=== PATIENT | female | born 1990 | race Caucasian/White ===

== ENCOUNTER 2017-04-02 18:11 | Emergency (ER) | payer MEDICAID ==
[~2017-04-02] VITALS: Ht 167.6 cm; Wt 118.0 kg
[~2017-04-02 18:11] MED LIST: CEPH500C2; METR500T4
[2017-04-02] MEDS ORDERED: HYDROCODONE/ACETAMINOPHEN 5/325MG TABLET PO ONE (19:15)
[2017-04-03 02:16] VITALS: BP 110/60
== END 2017-04-03 02:12 | disposition home or self-care (01) ==
LOC: ER 18:11
DX: H60.93 Unspecified otitis externa, bilateral (principal); E11.9 Type 2 diabetes mellitus without complications; G82.20 Paraplegia, unspecified; Z90.49 Acquired absence of other specified parts of digestive tract; Z86.718 Personal history of other venous thrombosis and embolism; Z98.890 Other specified postprocedural states
CPT/HCPCS: 69209; 99283

== ENCOUNTER 2019-01-07 | Emergency (ER) | payer MEDICAID ==
[~2019-01-07] VITALS: Ht 162.6 cm; Wt 100.0 kg
[2019-01-07] MEDS ORDERED: IBUPROFEN 800MG TABLET PO ONE (01:00)
[2019-01-07 06:12] VITALS: BP 105/65
== END 2019-01-07 06:57 | disposition home or self-care (01) ==
LOC: ER
DX: L89.322 Pressure ulcer of left buttock, stage 2 (principal); E11.622 Type 2 diabetes mellitus with other skin ulcer; R51 Headache; Z86.718 Personal history of other venous thrombosis and embolism
CPT/HCPCS: 99283

== ENCOUNTER 2019-01-09 15:06 | Inpatient (IN) | payer MEDICAID ==
[~2019-01-09] VITALS: Ht 167.6 cm; Wt 123.4 kg
[2019-01-09] MEDS ORDERED: VANCOMYCIN 1 G PREMIX 200 ML IV ONE (17:15)
[2019-01-09] MEDS ORDERED: SODIUM CHLORIDE 0.9% 1000ML BAG (SEPSIS BOLUS) IV ONE (17:15)
[2019-01-09] MEDS ORDERED: KETOROLAC 30MG/ML VIAL IV ONE (17:15)
[2019-01-09] MEDS ORDERED: PIPERACILLIN/TAZ 3.375G PREMIX 50 ML IV ONE (17:15)
[2019-01-09 17:31] LABS: BASOPHILS % 0.5 % (0.0-2.0); EOSINOPHILS % 0.2 % (0.0-5.0); HEMATOCRIT. 42.9 % (36.0-48.0); HEMOGLOBIN. 14.2 g/dL (12.0-16.0); LYMPHOCYTES % 19.6 % (20.0-50.0); MEAN CORPUSCULAR HEMOGLOBIN 29.2 pg (28.0-32.0); MEAN CORPUSCULAR VOLUME 87.8 fL (81.0-99.0); MONOCYTES % 8.2 % (2.0-8.0); NEUTROPHILS % 71.5 % (40.0-76.0); PLATELET 303 x1000/uL (130-400); RED BLOOD CELL COUNT 4.88 mill/uL (4.2-5.4); RED CELL DISTRIBUTION WIDTH 13.6 % (11.6-14.6)
[2019-01-09 17:36] LABS: CHLORIDE 98 mEq/L (98-107)
[2019-01-09 17:38] LABS: INR 1.1; PROTHROMBIN TIME 10.9 sec (9.6-11.0)
[2019-01-09 17:41] LABS: CLARITY URINE CLOUDY (CLEAR); COLOR URINE YELLOW (YELLOW); KETONES URINE 4+ (NEGATIVE); LEUKOCYTE ESTERASE URINE 1+ (NEGATIVE); NITRITE URINE POSITIVE (NEGATIVE); OCCULT BLOOD URINE 1+ (NEGATIVE); PROTEIN URINE 1+ (NEGATIVE); SPECIFIC GRAVITY URINE 1.027 (1.005-1.030)
[2019-01-09 17:43] LABS: HCG SCREEN NEGATIVE
[2019-01-09] MEDS ORDERED: SODIUM CHLORIDE 0.9% IV ONE (18:15)
[2019-01-09] MEDS ORDERED: POTASSIUM CHLORIDE 20MEQ TABLET SR PO ONE (18:15)
[2019-01-09] MEDS ORDERED: ONDANSETRON HCL 4MG/2ML INJ IV ONE (18:15)
[2019-01-09] MEDS ORDERED: ACETAMINOPHEN 325MG TABLET PO ONE (18:15)
[2019-01-09] MEDS ORDERED: CLONIDINE 0.1MG TABLET PO PRN (22:15)
[2019-01-09] MEDS ORDERED: DEXTROSE 50% WATER 50ML SYRINGE IV PRN (22:15)
[2019-01-09] MEDS ORDERED: ONDANSETRON HCL 4MG/2ML INJ IV PRN (22:15)
[2019-01-09] MEDS ORDERED: DIPHENHYDRAMINE 50MG/ML VIAL IV PRN (22:15)
[2019-01-09] MEDS ORDERED: MAGNESIUM/ALUMINUM HYDROXIDE/SIMETHICONE 30ML UDC PO PRN (22:15)
[2019-01-09 23:44] VITALS: BP 105/55
[2019-01-10] VITALS (8 sets, daily range): BP systolic 94–136; BP diastolic 49–87
[2019-01-10] MEDS: SODIUM CHLORIDE 0.9% 1,000 ML IV SCH ×2 (00:26→20:59)
[2019-01-10] MEDS: FAMOTIDINE 20MG TABLET PO SCH ×2 (00:26→20:58)
[2019-01-10] MEDS: ACETAMINOPHEN 325MG TABLET PO PRN ×3 (00:27→20:57)
[2019-01-10] MEDS ORDERED: LEVOFLOXACIN 500MG PREMIX 100 ML IV SCH (01:00)
[2019-01-10] MEDS ORDERED: POTASSIUM CHLORIDE INJ 40 MEQ in DEXT 5% WATER 250 ML IV SCH (01:00)
[2019-01-10] MEDS: BLOOD SUGAR DIAGNOSTIC STRIP TEST SCH ×4 (06:25→20:59)
[2019-01-10] MEDS: INSULIN LISPRO 100 UNITS/ML SUBCUT SCH ×4 (06:26→20:59)
[2019-01-10] MEDS: ENOXAPARIN 30MG/0.3ML SYR SUBCUT SCH ×2 (09:53→20:58)
[2019-01-10 10:27] LABS: BASOPHILS % 0.3 % (0.0-2.0); EOSINOPHILS % 0.4 % (0.0-5.0); HEMATOCRIT. 38.3 % (36.0-48.0); HEMOGLOBIN. 12.9 g/dL (12.0-16.0); LYMPHOCYTES % 19.2 % (20.0-50.0); MEAN CORPUSCULAR HEMOGLOBIN 29.6 pg (28.0-32.0); MEAN CORPUSCULAR VOLUME 87.7 fL (81.0-99.0); MEAN PLATELET VOLUME 8.8 fl (7.4-10.4); MONOCYTES % 6.9 % (2.0-8.0); NEUTROPHILS % 73.2 % (40.0-76.0); PLATELET 249 x1000/uL (130-400); RED BLOOD CELL COUNT 4.36 mill/uL (4.2-5.4); RED CELL DISTRIBUTION WIDTH 13.4 % (11.6-14.6)
[2019-01-10 10:34] LABS: CHLORIDE 104 mEq/L (98-107)
[2019-01-10 10:40] LABS: PHOSPHORUS 2.3 mg/dL (2.5-4.9)
[2019-01-10] MEDS: DOCUSATE SODIUM 250MG CAPSULE PO SCH (17:52)
[2019-01-10] MEDS: ZINC SULFATE 220 MG ( 50 ) CAPSULE PO SCH (17:52)
[2019-01-10] MEDS: MULTIVITAMINS,THER W-MINERALS TABLET PO SCH (17:53)
[2019-01-10] MEDS: ASCORBIC ACID 250 MG TABLET PO SCH (17:53)
[2019-01-10] MEDS: KETOROLAC 30MG/ML VIAL IV PRN (20:58)
[2019-01-11] VITALS: BP 98/53
[2019-01-11] MEDS: LEVOFLOXACIN 500MG PREMIX 100 ML IV SCH (00:30)
[2019-01-11 04:00] VITALS: BP 130/82
[2019-01-11] MEDS: BLOOD SUGAR DIAGNOSTIC STRIP TEST SCH ×4 (05:52→20:26)
[2019-01-11] MEDS: SODIUM CHLORIDE 0.9% 1,000 ML IV SCH ×2 (05:59→16:58)
[2019-01-11] MEDS: INSULIN LISPRO 100 UNITS/ML SUBCUT SCH ×4 (06:16→20:27)
[2019-01-11 08:00] VITALS: BP 137/76
[2019-01-11] MEDS: DOCUSATE SODIUM 250MG CAPSULE PO SCH ×2 (08:39→16:56)
[2019-01-11] MEDS: ZINC SULFATE 220 MG ( 50 ) CAPSULE PO SCH (08:39)
[2019-01-11] MEDS: MULTIVITAMINS,THER W-MINERALS TABLET PO SCH (08:39)
[2019-01-11] MEDS: ASCORBIC ACID 250 MG TABLET PO SCH (08:39)
[2019-01-11] MEDS: ENOXAPARIN 30MG/0.3ML SYR SUBCUT SCH ×2 (08:40→20:26)
[2019-01-11 12:00] VITALS: BP 130/70
[2019-01-11] MEDS: MAGNESIUM HYDROXIDE 400MG/5ML 30ML UDC PO PRN (12:53)
[2019-01-11] MEDS: KETOROLAC 30MG/ML VIAL IV PRN (12:54)
[2019-01-11 16:00] VITALS: BP 120/60
[2019-01-11 20:00] VITALS: BP 108/52
[2019-01-11] MEDS: FAMOTIDINE 20MG TABLET PO SCH (20:25)
[2019-01-12] VITALS: BP 94/60
[2019-01-12] MEDS: LEVOFLOXACIN 500MG PREMIX 100 ML IV SCH (00:20)
[2019-01-12 04:00] VITALS: BP 96/47
[2019-01-12] MEDS: SODIUM CHLORIDE 0.9% 1,000 ML IV SCH ×2 (04:29→13:11)
[2019-01-12] MEDS: BLOOD SUGAR DIAGNOSTIC STRIP TEST SCH ×2 (06:15→12:04)
[2019-01-12] MEDS: INSULIN LISPRO 100 UNITS/ML SUBCUT SCH ×2 (06:16→13:11)
[2019-01-12 08:00] VITALS: BP 96/55
[2019-01-12] MEDS: ENOXAPARIN 30MG/0.3ML SYR SUBCUT SCH (08:57)
[2019-01-12] MEDS: ASCORBIC ACID 250 MG TABLET PO SCH (08:57)
[2019-01-12] MEDS: DOCUSATE SODIUM 250MG CAPSULE PO SCH (08:57)
[2019-01-12] MEDS: ZINC SULFATE 220 MG ( 50 ) CAPSULE PO SCH (08:57)
[2019-01-12] MEDS: MAGNESIUM HYDROXIDE 400MG/5ML 30ML UDC PO PRN (08:57)
[2019-01-12] MEDS: MULTIVITAMINS,THER W-MINERALS TABLET PO SCH (08:57)
[2019-01-12 12:00] VITALS: BP 97/54
[2019-01-12 12:43] VITALS: BP 99/54
== END 2019-01-12 15:15 | disposition home or self-care (01) | DRG 720 ==
LOC: ER 15:35 → 5WST 18:31 → EDBEDREQ 18:45 → EDBEDREQTM 18:45 → ENRESERV 21:16
PROVIDERS: ADMIT Internal Medicine; ATTEND Internal Medicine
DX: A41.9 Sepsis, unspecified organism (principal); E43 Unspecified severe protein-calorie malnutrition; L89.154 Pressure ulcer of sacral region, stage 4; G82.21 Paraplegia, complete; E86.0 Dehydration; E11.65 Type 2 diabetes mellitus with hyperglycemia; E87.1 Hypo-osmolality and hyponatremia; E66.9 Obesity, unspecified; E87.6 Hypokalemia; N39.0 Urinary tract infection, site not specified; B96.89 Other specified bacterial agents as the cause of diseases classified elsewhere; K61.0 Anal abscess; K59.00 Constipation, unspecified; Z83.3 Family history of diabetes mellitus; Z87.440 Personal history of urinary (tract) infections; Z86.718 Personal history of other venous thrombosis and embolism; Z90.49 Acquired absence of other specified parts of digestive tract; Z98.891 History of uterine scar from previous surgery; Z68.43 Body mass index [BMI] 50.0-59.9, adult; Z79.84 Long term (current) use of oral hypoglycemic drugs
CPT/HCPCS: 36415; 71045; 74176; 82962; 83605; 83735; 83880; 84100; 84134; 84145; 84484; 84703; 87070; 87075; 87077; 87186; 93005; 93970; 96365; 96375; 97162; 99291; J1650; J1815; J1885; J1956; J2405; J2543; J3370; J3480; J7030; J7060

== ENCOUNTER 2019-07-17 18:27 | Inpatient (IN) | payer MEDICAID ==
[~2019-07-17] VITALS: Ht 167.6 cm; Wt 100.0 kg
[2019-07-17] MEDS ORDERED: ONDANSETRON HCL 4MG/2ML INJ IV STA (20:56)
[2019-07-17] MEDS ORDERED: SODIUM CHLORIDE 0.9% 1000ML BAG (SEPSIS BOLUS) IV ONE (21:00)
[2019-07-17] MEDS ORDERED: VANCOMYCIN 1 G PREMIX 200 ML IV ONE (21:00)
[2019-07-17] MEDS ORDERED: TRAMADOL 50MG TABLET PO ONE (21:00)
[2019-07-17] MEDS ORDERED: PIPERACILLIN/TAZ 3.375G PREMIX 50 ML IV ONE (21:00)
[2019-07-17] MEDS ORDERED: DIATR MEGLU/DIATRIZOATE SOLN 30ML ONE (21:10)
[2019-07-17 21:22] LABS: BASOPHILS % 0.3 % (0.0-2.0); EOSINOPHILS % 0.1 % (0.0-5.0); HEMATOCRIT. 40.9 % (36.0-48.0); HEMOGLOBIN. 13.2 g/dL (12.0-16.0); LYMPHOCYTES % 10.1 % (20.0-50.0); MEAN CORPUSCULAR HEMOGLOBIN 25.6 pg (28.0-32.0); MEAN CORPUSCULAR VOLUME 79.3 fL (81.0-99.0); MEAN PLATELET VOLUME 8.6 fl (7.4-10.4); MONOCYTES % 3.1 % (2.0-8.0); NEUTROPHILS % 86.4 % (40.0-76.0); PLATELET 418 x1000/uL (130-400); RED BLOOD CELL COUNT 5.15 mill/uL (4.2-5.4); RED CELL DISTRIBUTION WIDTH 16.3 % (11.6-14.6)
[2019-07-17 21:28] LABS: CHLORIDE 102 mEq/L (98-107)
[2019-07-17 21:32] LABS: INR 1.1; PROTHROMBIN TIME 10.9 sec (9.6-11.0)
[2019-07-17 21:34] LABS: HCG SCREEN NEGATIVE
[2019-07-17 23:21] LABS: CLARITY URINE CLOUDY (CLEAR); COLOR URINE YELLOW (YELLOW); KETONES URINE NEGATIVE (NEGATIVE); LEUKOCYTE ESTERASE URINE TRACE (NEGATIVE); NITRITE URINE POSITIVE (NEGATIVE); OCCULT BLOOD URINE 1+ (NEGATIVE); PH URINE 6.5 (4.5-8.0); PROTEIN URINE NEGATIVE (NEGATIVE); SPECIFIC GRAVITY URINE 1.019 (1.005-1.030)
[2019-07-18 01:35] VITALS: BP 114/78
[2019-07-18] MEDS ORDERED: METF-416 MT (02:45)
[2019-07-18] MEDS ORDERED: BACL-141 MT (02:46)
[2019-07-18] MEDS ORDERED: GABA-529 MT (02:46)
[2019-07-18 04:00] VITALS: BP 114/78
[2019-07-18] MEDS ORDERED: IOHEXOL-300 100 ML BOTTLE ONE (06:02)
[2019-07-18] MEDS ORDERED: HYDROCODONE/ACETAMINOPHEN 5/325MG TABLET PO PRN (06:30)
[2019-07-18] MEDS ORDERED: DEXTROSE 50% WATER 50ML SYRINGE IV PRN (06:30)
[2019-07-18] MEDS: BLOOD SUGAR DIAGNOSTIC STRIP TEST SCH ×4 (07:07→21:00)
[2019-07-18] MEDS: INSULIN LISPRO 100 UNITS/ML SUBCUT SCH ×4 (07:50→21:00)
[2019-07-18 08:00] VITALS: BP 142/82
[2019-07-18] MEDS: PIPERACILLIN/TAZOBACTAM 3.375 G in DEXT 5% WATER 100 ML IV SCH ×4 (08:00→18:38)
[2019-07-18] MEDS: ENOXAPARIN 30MG/0.3ML SYR SUBCUT SCH ×2 (08:24→21:00)
[2019-07-18] MEDS: VANCOMYCIN 1500MG in DEXTROSE 5% WATER 250ML IV SCH ×2 (08:24→10:00)
[2019-07-18 09:13] LABS: BASOPHILS % 0.4 % (0.0-2.0); EOSINOPHILS % 0.3 % (0.0-5.0); HEMOGLOBIN. 11.7 g/dL (12.0-16.0); LYMPHOCYTES % 20.6 % (20.0-50.0); MEAN CORPUSCULAR HEMOGLOBIN 25.9 pg (28.0-32.0); MEAN CORPUSCULAR VOLUME 79.4 fL (81.0-99.0); MEAN PLATELET VOLUME 8.2 fl (7.4-10.4); MONOCYTES % 5.1 % (2.0-8.0); NEUTROPHILS % 73.6 % (40.0-76.0); PLATELET 326 x1000/uL (130-400); RED BLOOD CELL COUNT 4.53 mill/uL (4.2-5.4); RED CELL DISTRIBUTION WIDTH 16.5 % (11.6-14.6)
[2019-07-18 09:19] LABS: CHLORIDE 103 mEq/L (98-107)
[2019-07-18 12:00] VITALS: BP 109/61
[2019-07-18 16:00] VITALS: BP 121/61
[2019-07-18] MEDS: VANCOMYCIN 1 G PREMIX 200 ML IV SCH (18:00)
[2019-07-18 20:00] VITALS: BP 103/59
[2019-07-18] MEDS: GABAPENTIN 100MG CAPSULE PO SCH (23:33)
[2019-07-18] MEDS: BACLOFEN 10MG TABLET PO SCH (23:33)
[2019-07-19] VITALS: BP 116/66
[2019-07-19] MEDS: VANCOMYCIN 1 G PREMIX 200 ML IV SCH ×3 (02:00→17:35)
[2019-07-19 04:00] VITALS: BP 127/77
[2019-07-19] MEDS: PIPERACILLIN/TAZOBACTAM 3.375 G in DEXT 5% WATER 100 ML IV SCH ×5 (06:00→18:42)
[2019-07-19] MEDS: BLOOD SUGAR DIAGNOSTIC STRIP TEST SCH ×4 (06:34→21:00)
[2019-07-19] MEDS: INSULIN LISPRO 100 UNITS/ML SUBCUT SCH ×4 (07:46→21:57)
[2019-07-19 08:00] VITALS: BP 119/66
[2019-07-19] MEDS ORDERED: LIDOCAINE HCL 1% 20ML VIAL (Pyxis) INJ ONE (09:05)
[2019-07-19] MEDS ORDERED: SODIUM BICARBONATE 4% (2.4MEQ) 5ML VIAL IV ONE (09:05)
[2019-07-19] MEDS: BACLOFEN 10MG TABLET PO SCH ×3 (10:09→17:30)
[2019-07-19] MEDS: GABAPENTIN 100MG CAPSULE PO SCH ×3 (10:10→17:30)
[2019-07-19] MEDS: ENOXAPARIN 30MG/0.3ML SYR SUBCUT SCH ×3 (10:10→20:39)
[2019-07-19 12:00] VITALS: BP 103/69
[2019-07-19 12:22] LABS: CHLORIDE 106 mEq/L (98-107)
[2019-07-19 16:00] VITALS: BP 112/69
[2019-07-19 20:00] VITALS: BP 99/51
[2019-07-20] VITALS: BP 118/59
[2019-07-20] MEDS: PIPERACILLIN/TAZOBACTAM 3.375 G in DEXT 5% WATER 100 ML IV SCH ×3 (00:53→11:46)
[2019-07-20] MEDS: VANCOMYCIN 1 G PREMIX 200 ML IV SCH ×2 (01:52→10:35)
[2019-07-20 04:00] VITALS: BP 97/55
[2019-07-20] MEDS: INSULIN LISPRO 100 UNITS/ML SUBCUT SCH ×3 (07:50→17:50)
[2019-07-20 08:00] VITALS: BP_SYST 90; BP_SYST 99; BP_DIAS 55
[2019-07-20] MEDS: BLOOD SUGAR DIAGNOSTIC STRIP TEST SCH ×3 (08:10→17:20)
[2019-07-20] MEDS: GABAPENTIN 100MG CAPSULE PO SCH ×3 (08:51→17:00)
[2019-07-20] MEDS: ENOXAPARIN 30MG/0.3ML SYR SUBCUT SCH (08:51)
[2019-07-20] MEDS: BACLOFEN 10MG TABLET PO SCH ×3 (08:51→17:00)
[2019-07-20 09:25] LABS: EOSINOPHILS % 0.9 % (0.0-5.0); HEMATOCRIT. 34.1 % (36.0-48.0)
[2019-07-20 09:31] LABS: CHLORIDE 111 mEq/L (98-107)
[2019-07-20 09:39] LABS: BASOPHILS % 0.5 % (0.0-2.0); HEMOGLOBIN. 10.9 g/dL (12.0-16.0); LYMPHOCYTES % 30.8 % (20.0-50.0); MEAN CORPUSCULAR HEMOGLOBIN 25.7 pg (28.0-32.0); MEAN CORPUSCULAR VOLUME 80.1 fL (81.0-99.0); MONOCYTES % 4.9 % (2.0-8.0); NEUTROPHILS % 62.9 % (40.0-76.0); PLATELET 305 x1000/uL (130-400); RED BLOOD CELL COUNT 4.25 mill/uL (4.2-5.4); RED CELL DISTRIBUTION WIDTH 15.9 % (11.6-14.6)
[2019-07-20 12:00] VITALS: BP_SYST 80; BP_SYST 98; BP_DIAS 49; BP_DIAS 61
[2019-07-20] MEDS ORDERED: NITR100C MT (14:22)
[2019-07-20] MEDS ORDERED: CEFTRIAXONE 2 G in DEXTROSE 5% WATER 50 ML IV SCH (15:00)
[2019-07-20 16:00] VITALS: BP_SYST 96; BP_SYST 99; BP_DIAS 60; BP_DIAS 61
[2019-07-20 17:36] VITALS: BP 105/62
[2019-07-20] MEDS ORDERED: METFORMIN HCL 500MG TABLET PO SCH (17:50)
[2019-07-20] MEDS ORDERED: VANCOMYCIN 1250MG in DEXTROSE 5% WATER 250ML IV SCH (18:00)
== END 2019-07-20 18:20 | disposition home health service (06) | DRG 720 ==
LOC: ER 18:27 → 6EST 23:29 → EDBEDREQ 23:31 → EDBEDREQTM 23:31 → ENRESERV 23:40
PROVIDERS: ADMIT Internal Medicine; ATTEND Internal Medicine
PROC: 02HV33Z Insertion of Infusion Device into Superior Vena Cava, Percutaneous Approach (ICD-10-PCS; principal; 2019-07-19)
PROC: B548ZZA Ultrasonography of Superior Vena Cava, Guidance (ICD-10-PCS; 2019-07-19)
PROC: B5181ZA Fluoroscopy of Superior Vena Cava using Low Osmolar Contrast, Guidance (ICD-10-PCS; 2019-07-19)
DX: A41.51 Sepsis due to Escherichia coli [E. coli] (principal); L89.159 Pressure ulcer of sacral region, unspecified stage; G82.21 Paraplegia, complete; N39.0 Urinary tract infection, site not specified; E11.9 Type 2 diabetes mellitus without complications; B96.20 Unspecified Escherichia coli [E. coli] as the cause of diseases classified elsewhere; M46.28 Osteomyelitis of vertebra, sacral and sacrococcygeal region; L03.818 Cellulitis of other sites; E66.9 Obesity, unspecified; Z93.3 Colostomy status; Z79.84 Long term (current) use of oral hypoglycemic drugs; Z79.899 Other long term (current) drug therapy; Z68.35 Body mass index [BMI] 35.0-35.9, adult; Z71.3 Dietary counseling and surveillance
CPT/HCPCS: 36415; 36573; 71045; 74177; 76937; 80048; 80053; 80202; 81003; 81025; 82962; 83605; 84145; 84484; 84703; 85025; 87070; 87075; 87077; 87186; 93005; 96361; 96365; 96375; 99291; C1725; J0696; J1650; J1815; J2405; J2543; J3370; J3490; J7030; J7060; Q9963; Q9967

== ENCOUNTER 2020-02-18 12:54 | Inpatient (IN) | payer MEDICAID ==
[~2020-02-18] VITALS: Ht 167.6 cm; Wt 115.2 kg
[~2020-02-18 12:54] MED LIST changes: +BACL-141 MT; -CEPH500C2; +GABA-529 MT; +METF-416 MT; -METR500T4; +NITR100C MT
[2020-02-18 14:23] LABS: CLARITY URINE CLEAR (CLEAR); COLOR URINE YELLOW (YELLOW); KETONES URINE NEGATIVE (NEGATIVE); LEUKOCYTE ESTERASE URINE NEGATIVE (NEGATIVE); NITRITE URINE NEGATIVE (NEGATIVE); OCCULT BLOOD URINE NEGATIVE (NEGATIVE); PROTEIN URINE NEGATIVE (NEGATIVE); SPECIFIC GRAVITY URINE 1.025 (1.005-1.030)
[2020-02-18] MEDS ORDERED: ACETAMINOPHEN 325MG TABLET PO STA (15:24)
[2020-02-18] MEDS ORDERED: KETOROLAC 30MG/ML VIAL IV STA (15:24)
[2020-02-18] MEDS ORDERED: CEFTRIAXONE 2 G PREMIX 50 ML IV ONE (15:30)
[2020-02-18] MEDS: SODIUM CHLORIDE 0.9% 1000ML BAG (SEPSIS BOLUS) IV ONE ×2 (15:30→18:30)
[2020-02-18 17:08] LABS: BASOPHILS % 0.3 % (0.0-2.0); EOSINOPHILS % 0.1 % (0.0-5.0); HEMATOCRIT. 36.5 % (36.0-48.0); LYMPHOCYTES % 16.6 % (20.0-50.0); MEAN CORPUSCULAR VOLUME 82.2 fL (81.0-99.0); MEAN PLATELET VOLUME 9.1 fl (7.4-10.4); MONOCYTES % 6.9 % (2.0-8.0); NEUTROPHILS % 76.1 % (40.0-76.0); PLATELET 257 x1000/uL (130-400); RED BLOOD CELL COUNT 4.45 mill/uL (4.2-5.4)
[2020-02-18 17:13] LABS: CHLORIDE 104 mEq/L (98-107)
[2020-02-18 17:29] LABS: INR 1.1; PROTHROMBIN TIME 11.4 sec (9.6-11.0)
[2020-02-18 17:29] LABS: *AMPHETAMINES SCREEN URINE NEGATIVE (NEGATIVE); *BARBITURATES SCREEN URINE NEGATIVE (NEGATIVE)
[2020-02-18 17:30] LABS: *BENZODIAZEPINES SCREEN URINE NEGATIVE (NEGATIVE); *COCAINE SCREEN URINE NEGATIVE (NEGATIVE); METHADONE URINE SCREEN NEGATIVE (NEGATIVE); OPIATES URINE SCREEN NEGATIVE (NEGATIVE); PHENCYCLIDINE URINE SCREEN NEGATIVE (NEGATIVE)
[2020-02-18 17:33] LABS: CANNABINOID URINE SCREEN PRESUMTIVE POSITIVE (NEGATIVE)
[2020-02-18 17:49] LABS: HCG SCREEN NEGATIVE
[2020-02-18 22:30] VITALS: BP 104/70
[2020-02-18] MEDS ORDERED: CLONIDINE 0.1MG TABLET PO PRN (23:30)
[2020-02-18] MEDS ORDERED: ACETAMINOPHEN 325MG TABLET PO PRN (23:30)
[2020-02-18] MEDS ORDERED: MAGNESIUM/ALUMINUM HYDROXIDE/SIMETHICONE 30ML UDC PO PRN (23:30)
[2020-02-18] MEDS ORDERED: ONDANSETRON HCL 4MG/2ML INJ IV PRN (23:30)
[2020-02-19] VITALS: BP 104/70
[2020-02-19] MEDS ORDERED: SODIUM CHLORIDE 0.9% 1,000 ML IV SCH (01:00)
[2020-02-19 04:00] VITALS: BP 97/54
[2020-02-19] MEDS ORDERED: DEXTROSE 50% WATER 50ML SYRINGE IV PRN (06:00)
[2020-02-19] MEDS ORDERED: POTASSIUM CHLORIDE 20MEQ TABLET SR PO SCH (06:00)
[2020-02-19] MEDS: BLOOD SUGAR DIAGNOSTIC STRIP TEST SCH ×4 (06:33→21:40)
[2020-02-19] MEDS: INSULIN LISPRO 100 UNITS/ML SUBCUT SCH ×4 (07:50→21:00)
[2020-02-19 08:00] VITALS: BP 126/79
[2020-02-19] MEDS ORDERED: ENOXAPARIN 40MG/0.4ML SYR SUBCUT SCH (09:00)
[2020-02-19 09:47] LABS: BASOPHILS % 1.1 % (0.0-2.0); EOSINOPHILS % 0.2 % (0.0-5.0); HEMATOCRIT. 36.6 % (36.0-48.0); HEMOGLOBIN. 11.9 g/dL (12.0-16.0); LYMPHOCYTES % 17.1 % (20.0-50.0); MEAN CORPUSCULAR HEMOGLOBIN 26.9 pg (28.0-32.0); MEAN CORPUSCULAR VOLUME 82.7 fL (81.0-99.0); MEAN PLATELET VOLUME 9.5 fl (7.4-10.4); MONOCYTES % 8.2 % (2.0-8.0); NEUTROPHILS % 73.4 % (40.0-76.0); PLATELET 243 x1000/uL (130-400); RED BLOOD CELL COUNT 4.42 mill/uL (4.2-5.4)
[2020-02-19 09:50] LABS: CHLORIDE 107 mEq/L (98-107)
[2020-02-19 09:57] LABS: LDL CHOLESTEROL 110 mg/dL (5-100)
[2020-02-19 09:59] LABS: HDL CHOLESTEROL 36 mg/dL (40-59)
[2020-02-19 12:00] VITALS: BP 138/82
[2020-02-19] MEDS: HYDROCODONE/ACETAMINOPHEN 5/325MG TABLET PO PRN ×3 (12:24→22:58)
[2020-02-19] MEDS: BACLOFEN 10MG TABLET PO SCH ×2 (13:27→16:45)
[2020-02-19] MEDS: GABAPENTIN 100MG CAPSULE PO SCH ×2 (13:27→16:45)
[2020-02-19 16:00] VITALS: BP 131/58
[2020-02-19] MEDS ORDERED: CEFTRIAXONE 1,000 MG in DEXTROSE 5% WATER 50 ML IV SCH (16:00)
[2020-02-19] MEDS: METFORMIN HCL 500MG TABLET PO SCH (16:50)
[2020-02-19] MEDS: DOCUSATE SODIUM 100MG CAPSULE PO PRN (17:28)
[2020-02-19 20:00] VITALS: BP 99/51
[2020-02-19] MEDS: DOXYCYCLINE HYCLATE 100MG CAPSULE PO SCH (22:48)
[2020-02-20] VITALS: BP 109/50
[2020-02-20 04:00] VITALS: BP 92/41
[2020-02-20] MEDS: BLOOD SUGAR DIAGNOSTIC STRIP TEST SCH ×2 (07:39→12:20)
[2020-02-20] MEDS: INSULIN LISPRO 100 UNITS/ML SUBCUT SCH ×2 (07:40→12:50)
[2020-02-20] MEDS: BACLOFEN 10MG TABLET PO SCH ×2 (08:46→14:46)
[2020-02-20] MEDS: METFORMIN HCL 500MG TABLET PO SCH (08:46)
[2020-02-20] MEDS: DOXYCYCLINE HYCLATE 100MG CAPSULE PO SCH (08:46)
[2020-02-20] MEDS: GABAPENTIN 100MG CAPSULE PO SCH ×2 (08:47→14:46)
[2020-02-20] MEDS ORDERED: ENOXAPARIN 30MG/0.3ML SYR SUBCUT SCH (09:00)
[2020-02-20] MEDS: DOCUSATE SODIUM 100MG CAPSULE PO PRN (09:42)
[2020-02-20] MEDS: HYDROCODONE/ACETAMINOPHEN 5/325MG TABLET PO PRN (11:11)
[2020-02-20 12:00] VITALS: BP 95/49
[2020-02-20] MEDS ORDERED: DOXY100C2 MT (13:37)
[2020-02-20] MEDS ORDERED: AMOX-424 MT (13:37)
[2020-02-20 13:56] VITALS: BP 95/49
[2020-02-20] MEDS ORDERED: AMOXICILLIN/POTASSIUM CLAVULANATE 875/125MG TAB PO NR (15:15)
[2020-02-21 05:09] LABS: HIV SCREEN 4G Non Reactive (Non Reactive)
== END 2020-02-20 16:44 | disposition home or self-care (01) | DRG 720 ==
LOC: ER 12:54 → 6EST 18:11 → EDBEDREQTM 18:14 → EDBEDREQ 18:14 → ENRESERV 20:29
PROVIDERS: ADMIT Internal Medicine; ATTEND Internal Medicine
DX: A41.9 Sepsis, unspecified organism (principal); G82.20 Paraplegia, unspecified; E11.9 Type 2 diabetes mellitus without complications; E66.01 Morbid (severe) obesity due to excess calories; E78.5 Hyperlipidemia, unspecified; K62.89 Other specified diseases of anus and rectum; M46.28 Osteomyelitis of vertebra, sacral and sacrococcygeal region; I10 Essential (primary) hypertension; K40.20 Bilateral inguinal hernia, without obstruction or gangrene, not specified as recurrent; D72.810 Lymphocytopenia; E87.2 Acidosis; R16.0 Hepatomegaly, not elsewhere classified; L89.159 Pressure ulcer of sacral region, unspecified stage; N39.0 Urinary tract infection, site not specified; R39.15 Urgency of urination; Z68.41 Body mass index [BMI] 40.0-44.9, adult; Z79.84 Long term (current) use of oral hypoglycemic drugs; Z93.3 Colostomy status; V49.9XXS Car occupant (driver) (passenger) injured in unspecified traffic accident, sequela; Z95.828 Presence of other vascular implants and grafts; Z88.1 Allergy status to other antibiotic agents; Z87.440 Personal history of urinary (tract) infections; Y93.89 Activity, other specified; Y92.89 Other specified places as the place of occurrence of the external cause; Y99.8 Other external cause status; Z90.49 Acquired absence of other specified parts of digestive tract; E44.0 Moderate protein-calorie malnutrition
CPT/HCPCS: 36415; 71045; 74176; 80048; 80053; 80061; 80305; 81003; 82962; 83036; 83605; 84145; 84443; 84484; 84703; 85025; 87389; 93005; 99285; J0696; J1650; J1815; J1885; J7030; J7060

== ENCOUNTER 2020-07-07 17:07 | Emergency (ER) | payer MEDICAID ==
[~2020-07-07] VITALS: Ht 170.2 cm; Wt 91.0 kg
[~2020-07-07 17:07] MED LIST changes: +AMOX-424 MT; +DOXY100C2 MT; -NITR100C MT
[2020-07-07 21:13] VITALS: BP 125/82
== END 2020-07-07 21:14 | disposition home or self-care (01) ==
LOC: ER 17:07
DX: B37.2 Candidiasis of skin and nail (principal); R03.0 Elevated blood-pressure reading, without diagnosis of hypertension; G82.20 Paraplegia, unspecified; Z98.890 Other specified postprocedural states
CPT/HCPCS: 99283

== ENCOUNTER 2021-10-02 01:34 | Emergency (ER) | payer MEDICAID ==
[~2021-10-02] VITALS: Ht 167.6 cm; Wt 91.0 kg
[~2021-10-02 01:34] MED LIST changes: -DOXY100C2 MT; +DOXY100C5 MT
[2021-10-02] MEDS ORDERED: ACETAMINOPHEN 325MG TABLET PO STA (01:57)
[2021-10-02 03:29] LABS: BASOPHILS % 0.5 % (0.0-2.0); EOSINOPHILS % 1.2 % (0.0-5.0); HEMATOCRIT. 39.9 % (36.0-48.0); HEMOGLOBIN. 13.7 g/dL (12.0-16.0); LYMPHOCYTES % 19.7 % (20.0-50.0); MEAN CORPUSCULAR VOLUME 87.3 fL (81.0-99.0); MEAN PLATELET VOLUME 9.1 fl (7.4-10.4); MONOCYTES % 4.5 % (2.0-8.0); NEUTROPHILS % 74.1 % (40.0-76.0); PLATELET 252 x1000/uL (130-400); RED BLOOD CELL COUNT 4.57 mill/uL (4.2-5.4); RED CELL DISTRIBUTION WIDTH 13.1 % (11.6-14.6)
[2021-10-02 03:36] LABS: CHLORIDE 104 mEq/L (98-107)
[2021-10-02 03:59] LABS: B-HCG QUANTITATIVE 5360 mIU/mL (<3)
[2021-10-02 05:36] LABS: CLARITY URINE CLEAR (CLEAR); COLOR URINE YELLOW (YELLOW); KETONES URINE TRACE (NEGATIVE); LEUKOCYTE ESTERASE URINE NEGATIVE (NEGATIVE); NITRITE URINE NEGATIVE (NEGATIVE); OCCULT BLOOD URINE NEGATIVE (NEGATIVE); PH URINE 6.5 (4.5-8.0); PROTEIN URINE NEGATIVE (NEGATIVE); SPECIFIC GRAVITY URINE 1.027 (1.005-1.030)
[2021-10-02 08:00] VITALS: BP 103/58
== END 2021-10-02 08:58 | disposition home or self-care (01) ==
LOC: ER 01:34
DX: O26.891 Other specified pregnancy related conditions, first trimester (principal); N93.9 Abnormal uterine and vaginal bleeding, unspecified; Z3A.01 Less than 8 weeks gestation of pregnancy
CPT/HCPCS: 36415; 76801; 80053; 81003; 81025; 84702; 85025; 86850; 86900; 99284

== ENCOUNTER 2021-10-05 09:07 | Emergency (ER) | payer MEDICAID ==
[~2021-10-05] VITALS: Ht 167.6 cm; Wt 100.0 kg
[2021-10-05 09:37] LABS: BASOPHILS % 0.5 % (0.0-2.0); EOSINOPHILS % 0.7 % (0.0-5.0); HEMATOCRIT. 39.2 % (36.0-48.0); HEMOGLOBIN. 13.4 g/dL (12.0-16.0); LYMPHOCYTES % 20.8 % (20.0-50.0); MEAN CORPUSCULAR HEMOGLOBIN 30.2 pg (28.0-32.0); MEAN CORPUSCULAR VOLUME 88.2 fL (81.0-99.0); MEAN PLATELET VOLUME 9.2 fl (7.4-10.4); MONOCYTES % 2.7 % (2.0-8.0); NEUTROPHILS % 75.3 % (40.0-76.0); PLATELET 240 x1000/uL (130-400); RED BLOOD CELL COUNT 4.45 mill/uL (4.2-5.4); RED CELL DISTRIBUTION WIDTH 13.3 % (11.6-14.6)
[2021-10-05 09:45] LABS: CHLORIDE 104 mEq/L (98-107)
[2021-10-05 10:08] LABS: B-HCG QUANTITATIVE 6059 mIU/mL (<3)
[2021-10-05 11:30] VITALS: BP 90/62
== END 2021-10-05 13:26 | disposition home or self-care (01) ==
LOC: ER 09:07
DX: O20.0 Threatened abortion (principal); O24.911 Unspecified diabetes mellitus in pregnancy, first trimester; O26.891 Other specified pregnancy related conditions, first trimester; G82.20 Paraplegia, unspecified; Z3A.01 Less than 8 weeks gestation of pregnancy; Z90.49 Acquired absence of other specified parts of digestive tract; Z79.84 Long term (current) use of oral hypoglycemic drugs
CPT/HCPCS: 36415; 76801; 80053; 84702; 85025; 86850; 86900; 99284

== ENCOUNTER 2022-06-26 01:04 | Emergency (ER) | payer MEDICAID ==
[~2022-06-26] VITALS: Ht 160 cm; Wt 90.0 kg
[2022-06-26] MEDS ORDERED: ONDANSETRON 4MG ODT PO ONE (01:30)
[2022-06-26] MEDS ORDERED: ACETAMINOPHEN 325MG TABLET PO ONE (01:30)
[2022-06-26 04:26] LABS: CLARITY URINE CLOUDY (CLEAR); COLOR URINE YELLOW (YELLOW); KETONES URINE NEGATIVE (NEGATIVE); LEUKOCYTE ESTERASE URINE 2+ (NEGATIVE); NITRITE URINE NEGATIVE (NEGATIVE); OCCULT BLOOD URINE NEGATIVE (NEGATIVE); PROTEIN URINE NEGATIVE (NEGATIVE); SPECIFIC GRAVITY URINE 1.007 (1.005-1.030); UROBILINOGEN URINE 0.2 E.U./dL (0.2-1.0)
[2022-06-26] MEDS ORDERED: CEPH500C2 MT (04:35)
[2022-06-26] MEDS ORDERED: ACET-2708 MT (04:35)
[2022-06-26] MEDS ORDERED: CEPHALEXIN 250MG CAPSULE PO NR (04:45)
[2022-06-26 05:30] VITALS: BP 106/62
[2022-06-26] MEDS ORDERED: ONDANSETRON 4MG ODT PO SCH (06:45)
[2022-06-26] MEDS ORDERED: ACETAMINOPHEN 325MG TABLET PO SCH (06:45)
== END 2022-06-26 11:25 | disposition home or self-care (01) ==
LOC: ER 01:04
DX: R30.0 Dysuria (principal); R82.81 Pyuria; E11.9 Type 2 diabetes mellitus without complications; G82.20 Paraplegia, unspecified; Z90.49 Acquired absence of other specified parts of digestive tract
CPT/HCPCS: 81003; 99284; Q0162; Z7610